=== PATIENT | male | born 1945 | race Caucasian/White ===

== ENCOUNTER 2024-04-25 09:09 | Emergency (ER) | payer OTHER ==
[2024-04-25 09:49] LABS: Absolute Eosinophils 0.2 K/uL (0-0.5); Absolute Lymphocytes (CBC) 0.7 K/uL (0.7-4.9); Absolute Monocytes 0.7 K/uL (0.1-1.3); Absolute Neutrophil 10.3 K/uL (1.8-8.0); Basophils % 0.4 % (0-1.3); Eosinophils % 1.9 % (0-4.4); Hematocrit 41.1 % (39.6-49.0); Hemoglobin 13.4 g/dL (13.6-17.9); Lymphocytes % 5.8 % (15.3-44.8); MCH 29.6 pg (27.0-35.0); MCHC 32.7 g/dL (32.0-36.0); MCV 90.6 fL (80-100); MPV 7.7 fL (7.6-11.3); Monocytes % 5.7 % (3.3-12.3); Neutrophils % 86.2 % (41.7-73.7); Platelets 295 thou/uL (152-406); RBC Red Blood Cell Count 4.53 M/uL (4.33-5.43); Red Cell Distribution Width 13.8 % (12.1-15.2)
[2024-04-25] MEDS ORDERED: ONDANSETRON 4 MG/2 ML VIAL ONE (09:57)
[2024-04-25] MEDS ORDERED: MORPHINE 4 MG/ML SYR ONE (09:58)
[2024-04-25 10:07] LABS: Albumin 3.4 g/dL (3.4-5.0); Albumin/Globulin Ratio 0.9 (1.1-1.8); Anion Gap 8.8 mEq/L (5.0-15.0); Bilirubin Total 0.8 mg/dL (0.2-1.0); Globulin 3.6 g/dL (2.3-3.5); Potassium 3.8 mEq/L (3.5-5.1)
[2024-04-25 10:17] LABS: Specific Gravity 1.017 (1.005-1.030); Sqamous Epithelial None Seen /HPF (None Seen); Urine Bacteria None Seen /HPF (<20); Urine Bilirubin NEGATIVE (Negative); Urine Blood Negative (Negative); Urine Clarity Clear (Clear); Urine Color Light-Yellow (Yellow); Urine Culture Reflex Order NOT NEEDED; Urine Glucose NEGATIVE (Negative); Urine Ketones NEGATIVE (Negative); Urine Microscopic Reflex YN ORDER UMIC; Urine Mucus Slight /HPF (None Seen); Urine Nitrite NEGATIVE (Negative); Urine Protein NEGATIVE (Negative); Urine RBC <5 /HPF (None Seen); Urine Urobilinogen Normal (Normal); Urine WBC <5 /HPF (<5)
--- NOTE | 2024-04-25 10:48 | RAD REPORT ---
EXAMINATION: CT ABDOMEN AND PELVIS WITH CONTRAST CLINICAL INDICATION: Abdominal pain TECHNIQUE: CT abdomen and pelvis was performed, after the administration of 100 cc Isovue-300.. Sagit romana and coronal reconstructions were obtained. One or more of the following dose reduction techniques were used: Automated exposure control, adjustment of the mA and kV according to patient si ze, and iterative reconstruction. Unless otherwise specified, incidental findings do not require dedicated imaging follow-up. [id number]. Oral contrast was not given which limits evaluation of bowel and appendix. COMPARISON: .None FINDINGS: Cholecystectomy Mild prominence of the intra and extrahepatic biliary tree. The spleen, pancreas and adrenals unremarkable. Bilateral renal cysts. The largest is within the right kidney measuring 5.1 cm. Normal appendix. The wall of the descending colon is markedly thickened with stranding in the adjacent fat. Pneumatosis intestinalis is not present. [id number] right and small left inguinal hernias containing fat. 6 small amount of ascites. : IMPRESSION: Marked descending colon colitis
[2024-04-25] MEDS ORDERED: METRONIDAZOLE 500mg IVPB 500 MG/100 ML BAG IV ONE (11:19)
[2024-04-25] MEDS ORDERED: CIPROFLOXACIN 400mg IV 400 MG/200 ML BAG IV ONE (11:19)
[2024-04-25 12:56] LABS: Blood Morphology Comment NOT SEEN (NOT SEEN); Platelet Estimate ADEQ; White Blood Cell Scan OK (OK)
--- NOTE | 2024-04-25 13:20 | ER ---
Nurse's Notes [facility] Name: Rich Orozco Age: 79 yrs Sex: Male : 1945 Arrival Date: 04/25/2024 Time: 09:09 Bed 4 Private MD: Diagnosis: Left sided colitis with rectal bleeding;Abdominal tenderness, unspecified site Presentation: 04/25 09:34 Chief complaint: Patient states: had bright red blood in stool since last night , also iw having lower abd pain/cramping , has been on abx for cellulitis of right arm s/p MOHS procedure. Coronavirus screen: At this time, the client does not indicate any symptoms associated with coronavirus-19. Ebola Screen: No symptoms or risks identified at this time. Initial Sepsis Screen: Does the patient meet any 2 criteria? No. Patient's initial sepsis screen is negative. Does the patient have a suspected source of infection? No. Patient's initial sepsis screen is negative. Risk Assessment: Do you want to hurt yourself or someone else? Patient reports no desire to harm self or others. Onset of symptoms was April 24, 2024. 09:34 Method Of Arrival: Ambulatory iw 09:34 Acuity: DEIRDRE 3 iw Historical: - Allergies: 09:36 No Known Allergies; iw - PMHx: 09:40 Atrial fibrillation; Hypertensive disorder; prostate cancer; rs5 - PSHx: 09:40 hernia repair x3; watchman's procedure; atrial pacemaker placement; aortic valve rs5 placement; prostate removal; - Immunization history:: Adult Immunizations up to date. - Infectious Disease History:: Denies. - Social history:: Smoking status: Patient denies any tobacco usage or history of. Screenin:38 [facility] ED Fall Risk Assessment (Adult) History of falling in the last 3 months, iw including since admission No falls in past 3 months (0 pts) Confusion or Disorientation No (0 pts) Intoxicated or Sedated No (0 pts) Impaired Gait No (0 pts) Mobility Assist Device Used Yes (1 pt) Altered Elimination No (0 pt) Score/Fall Risk Level 0 - 2 = Low Risk Oriented to surroundings, Maintained a safe environment. Abuse screen: Denies threats or abuse. Nutritional screening: No deficits noted. Tuberculosis screening: No symptoms or risk factors identified. Assessment: 09:37 General: Appears in no apparent distress. Behavior is calm, cooperative. Pain: iw Complains of pain in right lower quadrant and left lower quadrant Pain currently is 8 out of 10 on a pain scale. Neuro: Level of Consciousness is awake, alert, obeys commands, Oriented to person, place, time, situation, Moves all extremities. Full function. Cardiovascular: Patient's skin is warm and dry. Respiratory: Respiratory effort is even, unlabored, Respiratory pattern is regular, symmetrical. GI: Abdomen is non-distended, GI: Reports lower abdominal pain, cramping, bloody stool. Derm: Skin is intact, is healthy with good turgor. Musculoskeletal: Range of motion: intact in all extremities. 09:40 GI: Bowel sounds present X 4 quads. rs5 09:40 : No signs and/or symptoms were reported regarding the genitourinary system. EENT: No rs5 signs and/or symptoms were reported regarding the EENT system. 11:01 Reassessment: Patient and/or family updated on plan of care and expected duration. Pain rs5 level reassessed. Patient is alert, oriented x 3, equal unlabored respirations, skin warm/dry/pink. 12:08 Reassessment: Patient and/or family updated on plan of care and expected duration. Pain rs5 level reassessed. Patient is alert, oriented x 3, equal unlabored respirations, skin warm/dry/pink. 12:43 Reassessment: Patient appears in no apparent distress at this time. Patient and/or iw family updated on plan of care and expected duration. Pain level reassessed. Patient is alert, oriented x 3, equal unlabored respirations, skin warm/dry/pink. pt assisted to bedside commode, stool sample collected by clinical support tech. 13:33 Reassessment: Patient and/or family updated on plan of care and expected duration. Pain rs5 level reassessed. Patient is alert, oriented x 3, equal unlabored respirations, skin warm/dry/pink. Vital Signs: 09:34 BP 155 / 72; Pulse 70; Resp 16; Temp 98; Pulse Ox 96% on R/A; Weight 87.09 kg; Height 5 iw ft. 7 in. ; Pain 8/10; 12:44 BP 137 / 75; Pulse 69; Resp 19; Pulse Ox 97% on R/A; iw 13:35 BP 131 / 71; Pulse 71; Resp 17; Pulse Ox 99% on R/A; rs5 09:34 Body Mass Index 30.07 (87.09 kg, 170.18 cm) iw 09:34 Pain Scale: Adult iw ED Course: 09:11 Patient arrived in ED. im 09:19 Harvey Zarate MD is Attending Physician. bo1 09:27 Muriel Youngblood, RN is Primary Nurse. iw 09:36 Triage completed. iw 09:37 Arm band placed on. iw 09:38 Patient has correct armband on for positive identification. Provided Education on: lab iw wait time . Client placed on continuous cardiac and pulse oximetry monitoring. NIBP monitoring applied. 09:40 No provider procedures requiring assistance completed. rs5 09:42 CBC with Diff Sent. ty 09:42 CMP Sent. ty 09:42 Lipase Sent. ty 09:42 Initial lab(s) drawn, by me, sent to lab. Inserted saline lock: 20 gauge in left ty antecubital area, using aseptic technique. Blood collected. Flushed with 10 mL NS. 10:35 CT Abd/Pelvis - IV Contrast Only In Process Unspecified. EDMS 13:40 IV discontinued, intact, bleeding controlled, No redness/swelling at site. Pressure rs5 dressing applied. 13:50 CDIFF RTPCR Sent. rs5 Administered Medications: 10:05 Drug: Ondansetron IVP 4 mg IVP once; over 2 minutes Route: IVP; Site: left antecubital; iw 10:22 Follow up: Response: No adverse reaction rs5 10:05 Drug: morphine IVP or IV 4 mg IVP once over 4 mins Route: IVP; Infused Over: 4 mins; iw Site: left antecubital; 10:22 Follow up: Response: No adverse reaction; Pain is decreased rs5 11:24 Drug: Ciprofloxacin IVPB 400 mg 200 ml IVPB once over 60 mins Volume: 200 ml; Route: iw IVPB; Infused Over: 60 mins; Site: left antecubital; 12:33 Follow up: Response: No adverse reaction; IV Status: Completed infusion; IV Intake: rs5 200ml 11:24 Drug: metroNIDAZOLE IVPB 500 mg 100 ml IVPB at 200 ml/hr once over 30 mins Volume: 100 iw ml; Route: IVPB; Rate: 200 ml/hr; Infused Over: 30 mins; Site: left antecubital; 12:00 Follow up: IV Status: Completed infusion iw 12:05 Follow up: Response: No adverse reaction; IV Intake: 100ml rs5 Medication: 09:38 VIS not applicable for this client. iw Intake: 12:05 IV: 100ml; Total: 100ml. rs5 12:33 IV: 200ml; Total: 300ml. rs5 Outcome: 13:19 Discharge ordered by . bo1 13:40 Discharged to home ambulatory, rs5 13:40 Condition: stable rs5 13:40 Discharge instructions given to patient, family, Instructed on discharge instructions, follow up and referral plans. medication usage, Demonstrated understanding of instructions, follow-up care, medications, Prescriptions given X 3, 13:43 Patient left the ED. rs5 Signatures: Dispatcher [employer] EDMS Muriel Youngblood, RN ORALIA iw Juliano Cloud RN RN rs5 Genia Heredia Tylor ty Oei, Benjamin, MD MD bo1 Corrections: (The following items were deleted from the chart) 09:37 09:34 Chief complaint: Patient states: had bright red blood in stool since last night , iw also having lower abd pain/cramping iw
--- NOTE | 2024-04-25 13:20 | EDPHYS ---
Physician Documentation [facility] Name: Rich Orozco Age: 79 yrs Sex: Male : 1945 Arrival Date: 04/25/2024 Time: 09:09 Bed 4 Private MD: ED Physician Harvey Zarate HPI: 04/25 09:51 This 79 yrs old Male presents to ER via Ambulatory with complaints of Abdominal Pain, bo1 Rectal Bleeding. 09:51 Onset: The symptoms/episode began/occurred suddenly, yesterday, last night. Context: bo1 the patient has no known special context relating to the rectal area complaint(s), Recent hospitalizations for a skin infection post MOHS bx of the right forearm. Rectal bleeding started last night, like "diarrhea.". Historical: - Allergies: 09:36 No Known Allergies; iw - PMHx: 09:40 Atrial fibrillation; Hypertensive disorder; prostate cancer; rs5 - PSHx: 09:40 hernia repair x3; watchman's procedure; atrial pacemaker placement; aortic valve rs5 placement; prostate removal; - Immunization history:: Adult Immunizations up to date. - Infectious Disease History:: Denies. - Social history:: Smoking status: Patient denies any tobacco usage or history of. ROS: 13:13 Constitutional: Negative for fever, chills, and weight loss bo1 13:13 Neck: Negative for pain with movement, pain at rest, 13:13 Cardiovascular: Negative for chest pain, palpitations, 13:13 Respiratory: Negative for cough, shortness of breath, 13:13 Abdomen/GI: Positive for abdominal pain, diarrhea, rectal bleeding, 13:13 Back: Negative for pain at rest, pain with movement, 13:13 MS/extremity: Negative for pain, paresthesias, swelling, 13:13 Skin: Negative for rash, Healing bx site to the right FA, 13:13 All other systems are negative, Exam: 13:14 Constitutional: This is a well developed, well nourished patient who is awake, alert, bo1 and in no acute distress. 13:14 Constitutional: The patient appears alert, awake, comfortable, non-toxic, in obvious distress, mildly distressed, From the abd pain. 13:14 Eyes: Sclera: icterus, is not appreciated, 13:14 Cardiovascular: Rate: normal, Rhythm: regular, Pulses: no pulse deficits are appreciated, 13:14 Respiratory: the patient does not display signs of respiratory distress, Respirations: normal, no acute changes, Breath sounds: are clear throughout, 13:14 Back: CVA tenderness, is absent, 13:14 Musculoskeletal/extremity: Extremities: all appear grossly normal, with no appreciated pain with palpation, 13:14 Skin: lesion(s), Right FA site of the MOHS bx looks good. No drainage or erythema., no rash present. Vital Signs: 09:34 BP 155 / 72; Pulse 70; Resp 16; Temp 98; Pulse Ox 96% on R/A; Weight 87.09 kg; Height 5 iw ft. 7 in. ; Pain 8/10; 12:44 BP 137 / 75; Pulse 69; Resp 19; Pulse Ox 97% on R/A; iw 13:35 BP 131 / 71; Pulse 71; Resp 17; Pulse Ox 99% on R/A; rs5 09:34 Body Mass Index 30.07 (87.09 kg, 170.18 cm) iw 09:34 Pain Scale: Adult iw MDM: 09:20 Medical Screening Exam initiated bo1 10:39 Differential diagnosis: Diverticulitis, rectal bleed (or lower GI bleed) from unknown bo1 source. Response to treatment: the patient's symptoms have markedly improved after treatment, Post the morphine and ondansetron IV. 13:16 Data reviewed: vital signs, lab test result(s), radiologic studies, CT scan, Stool bo1 studies: Pending. ED course: Pt is much more comfortable and have agreed to treatment in the OP setting. Plans are to F/U with his PCP and or return to the ER if symptoms return.. 04/25 09:22 Order name: CBC with Diff; Complete Time: 13:11 bo1 04/25 09:22 Order name: CMP; Complete Time: 10:18 bo1 04/25 09:22 Order name: Lipase; Complete Time: 10:18 bo1 04/25 09:22 Order name: Urinalysis w/ reflexes; Complete Time: 10:18 bo1 04/25 12:32 Order name: Stool Culture bo1 04/25 12:33 Order name: CDIFF RTPCR bo1 04/25 12:46 Order name: CDIFF ld1 04/25 12:57 Order name: CBC Smear Scan; Complete Time: 13:11 EDMS 04/25 10:19 Order name: CT Abd/Pelvis - IV Contrast Only; Complete Time: 10:58 bo1 04/25 09:22 Order name: IV Saline Lock; Complete Time: 09:42 bo1 04/25 09:22 Order name: Labs collected and sent; Complete Time: 09:42 bo1 Administered Medications: 10:05 Drug: Ondansetron IVP 4 mg IVP once; over 2 minutes Route: IVP; Site: left antecubital; iw 10:22 Follow up: Response: No adverse reaction rs5 10:05 Drug: morphine IVP or IV 4 mg IVP once over 4 mins Route: IVP; Infused Over: 4 mins; iw Site: left antecubital; 10:22 Follow up: Response: No adverse reaction; Pain is decreased rs5 11:24 Drug: Ciprofloxacin IVPB 400 mg 200 ml IVPB once over 60 mins Volume: 200 ml; Route: iw IVPB; Infused Over: 60 mins; Site: left antecubital; 12:33 Follow up: Response: No adverse reaction; IV Status: Completed infusion; IV Intake: rs5 200ml 11:24 Drug: metroNIDAZOLE IVPB 500 mg 100 ml IVPB at 200 ml/hr once over 30 mins Volume: 100 iw ml; Route: IVPB; Rate: 200 ml/hr; Infused Over: 30 mins; Site: left antecubital; 12:00 Follow up: IV Status: Completed infusion iw 12:05 Follow up: Response: No adverse reaction; IV Intake: 100ml rs5 Disposition Summary: 04/25/24 13:19 Discharge Ordered Notes: Location: Home bo1 Problem: new bo1 Symptoms: have improved bo1 Condition: Stable bo1 Diagnosis - Left sided colitis with rectal bleeding bo1 - Abdominal tenderness, unspecified site bo1 Followup: bo1 - With: Private Physician - When: Upon discharge from the Emergency Department - Reason: Recheck today's complaints, Continuance of care Discharge Instructions: - Discharge Summary Sheet bo1 - Abdominal Pain, Adult bo1 - Colitis bo1 Forms: - Medication Reconciliation Form bo1 - Antibiotic Education bo1 - Prescription Opioid Use bo1 - Patient Portal Instructions bo1 - Leadership Thank You Letter bo1 Prescriptions: - acetaminophen-codeine 300-30 mg Oral tablet - take 2 tablet ORAL route every 4 to 6 hours as needed for pain; 20 tablet; bo1 Refills: 0, Product Selection Permitted - Cipro 500 mg Oral Tablet - take 1 tablet ORAL route every 12 hours for 10 days; 20 tablet; Refills: 0, bo1 Product Selection Permitted - Metronidazole 500 mg Oral Tablet - take 1 tablet ORAL route every 8 hours; 30 tablet; Refills: 0, Product bo1 Selection Permitted - ondansetron 8 mg Oral Tablet,disintegrating - take 1 tablet ORAL route every 8 hours; 15 tablet; Refills: 0, Product bo1 Selection Permitted Signatures: Dispatcher [employer] Muriel Burks RN RN iw Juliano Cloud RN RN rs5 OeiHarvey MD MD bo1
[2024-04-25 14:01] LABS: C.diff Antigen/Toxin Ag neg : Tox neg (NEG : NEG); CDIFF INTERNAL NEG CONTROL White Background (WHITE BKGD); STOOL CONSISTENCY Liquid/Semi-Solid
[2024-04-25 19:24] VITALS: BP 155/72; TEMP 98; O2SAT 96
== END 2024-04-25 13:43 | disposition home or self-care (01) ==
LOC: ER 09:09
DX: K51.511 Left sided colitis with rectal bleeding (principal); Z85.46 Personal history of malignant neoplasm of prostate; I10 Essential (primary) hypertension; I48.91 Unspecified atrial fibrillation; Z95.0 Presence of cardiac pacemaker
CPT/HCPCS: 96365; 96368; 87045; 85025; 81001; 36415; 87046; 87324; 83690; 80053; 74177; 96375; 99284; Q9967; J2405; J0744